=== PATIENT | female | born 1950 | race Caucasian/White ===

== ENCOUNTER 2021-06-13 18:36 | Emergency (ER) | payer MEDICARE, SELFPAY ==
[2021-06-13 18:53] VITALS: BP 143/85; PULSE 91; RESP 18; TEMP 36.8; O2SAT 96; BMI 28.3
--- NOTE | 2021-06-13 19:18 | W.ED.GENADLT ---
HPI - General Adult General: Chief complaint: General Medical Stated complaint: Sinus Infection Time Seen by Provider: 06/13/21 19:05 History of Present Illness: Patient is a 70-year-old female comes to the ED with upper respiratory symptoms. Symptoms started approximately 5 days ago. She is complaining of having sinus congestion and drainage along with a cough. She says her cough is dry and nonproductive. She also feels some shortness of breath with exertion since start of symptoms. Endorses fever and chills. Denies any chest pain, sore throat, abdominal pain, nausea, vomiting, bladder or bowel symptoms. Associated symptoms: Reports dyspnea (mild SOB with exertion); Deny chest pain, headache(s), nausea, rash, palpitations or vomiting Review of Systems Const: Reports: fever(s); Denies: chills or fatigue Eyes: Denies: change in vision or eye discomfort ENMT: Reports: nasal discharge and nasal congestion; Denies: throat pain or odynophagia Card: Denies: chest pain, palpitations, edema, swelling of feet/ankles, dyspnea on exertion or orthopnea Resp: Reports: dyspnea (mild SOB with exertion) and non-productive cough; Denies: productive cough GI: Denies: abdominal pain, nausea, vomiting, diarrhea, constipation or hematochezia : Denies: flank pain, dysuria or hematuria Musc: Denies: neck pain, back pain or extremity swelling Skin/Breast: Denies: rash or new lesions Neuro: Denies: headache(s), numbness in extremities or weakness in extremities PFS ED PFSH: Medical History No pertinent family history Surgical History No pertinent past surgical history Physical Exam Const: COMMON NORMALS: no acute distress, patient oriented x3 and alert GENERAL APPEARANCE: cooperative and comfortable HENMT: COMMON NORMALS: normocephalic HEAD & SCALP: normocephalic FACE & SINUS: no sinus tenderness MOUTH: Normal oral and palatal mucosa present THROAT: posterior oropharynx normal and uvula midline Eye: COMMON NORMALS: Equal, round and reactive pupils present and conjunctivae normal CONJUNCTIVA: Yes conjunctivae normal PUPIL: Yes Equal, round and reactive pupils present Neck/C-Spine: COMMON NORMALS: supple GENERAL: Yes normal visual inspection Resp: COMMON NORMALS: normal respiratory effort, No retractions, No use of accessory muscles and clear to auscultation bilaterally AUSCULTATION: clear to auscultation bilaterally Cardio: COMMON NORMALS: regular rate, regular rhythm, S1 normal heart sound present, S2 normal heart sound present, No gallops present (Cardio), No clicks present (Cardio), No murmurs present (Cardio) and Peripheral pulses 2+ throughout RATE: regular rate RHYTHM: regular rhythm HEART SOUNDS: S1 normal heart sound present and S2 normal heart sound present PERIPHERAL PULSES: Peripheral pulses 2+ throughout GI: COMMON NORMALS: Normal to inspection, nondistended, normoactive bowel sounds present, Soft to palpation, non-tender and no masses PALPATION: Yes Soft to palpation : COMMON NORMALS: Yes no CVA tenderness BLADDER/KIDNEY EXAM: Yes no CVA tenderness Back/Pelvis: COMMON NORMALS: no CVA tenderness Extremity: COMMON NORMALS: normal to inspection Neuro: COMMON NORMALS: patient oriented x3 and moves all extremities SENSORIUM/ORIENTATION: Yes alert Skin: GENERAL SKIN EXAM: dry skin Course Vital Signs: Vital signs: Vital Signs Temperature 98.2 F 06/13/21 20:09 Pulse Rate 95 06/13/21 20:09 Respiratory Rate 16 06/13/21 20:09 Blood Pressure 143/85 06/13/21 20:09 Pulse Oximetry 98 06/13/21 20:09 [facility] - General Adult Medical Decision Making Patient is a 70-year-old female comes to the ED with nasal congestion drainage, dry cough and fevers for the past 5 days. Vitals are stable. Patient appears nontoxic and in no acute distress or pain. Rest of exam is benign. Chest x-ray showed no pneumonia. Covid and influenza were negative. Patient diagnosed with bronchitis and discharged home with a prescription for azithromycin and prednisone. She was told to follow-up with her PCP in 5 to 7 days reevaluation. Return to ED precautions given. Patient understood and agree with plan. Lab Data I reviewed the patient's lab results. Laboratory Results Influenza Type A Ag Negative (Negative) 06/13/21 19:27 Influenza Type B Ag Negative (Negative) 06/13/21 19:27 SARS-CoV-2 Ag (Rapid) Negative (Negative) 06/13/21 19:27 Imaging Data CXR: My impression: Chest x-ray?no infiltrate seen. Discharge Plan Discharge Patient Disposition: Home Clinical Impression: Bronchitis Condition: Stable Prescriptions: New prednisone 20 mg tablet 20 mg PO BID 5 Days Qty: 10 0RF azithromycin 250 mg tablet 250 mg PO DAILY 4 Days Qty: 4 0RF Rx Instructions: start on day 2 of therapy Discharge Orders: Discharge ED (Routine); Ordered 06/13/21 Ordered By: Wojciech Florian Discharge Diet: Regular Discharge Activity: Increase activity as tolerated Patient Instructions: Acute Bronchitis (ED), Upper Respiratory Infection - Adult Activity Restrictions/Additional Instructions: Follow-up with medical provider as directed in 7 to 10 days for reevaluation.Take medications as prescribed. Return to the ER or your medical provider if condition worsens. Please read and understand discharge instructions. Thank you for choosing [facility] for your healthcare needs today. Please realize this is an emergency room and that we are providing you with a medical screening exam and this may not be complete and all inclusive of all the testing and or work up that you may need to determine your ailment or severity of your illness. It is very important that you follow up as instructed or that you return to the Emergency Department should you have concerns or if your condition changes or worsens in any way. Coding Level of Care Code ED Automatic Pattern Edger for Dulce Kent Exam Comprehensive
--- NOTE | 2021-06-13 19:19 | XRR_ITS ---
PROCEDURE INFORMATION: Exam: XR Chest Exam date and time: 06/13/2021 6:28 PM Age: 70 years old Clinical indication: Cough TECHNIQUE: Imaging protocol: XR of the chest. Views: 1 view. COMPARISON: No relevant prior studies available. FINDINGS: Lungs: Unremarkable. No consolidation. Pleural spaces: Unremarkable. No pleural effusion. No pneumothorax. Heart/Mediastinum: Unremarkable. No cardiomegaly. Bones/joints: Unremarkable. XR/XR chest 1V portable [id number] IMPRESSION: No acute findings.
[2021-06-13 19:57] LABS: Influenza A by IFA Negative (Negative); Influenza B by IFA Negative (Negative); SARS Covid-2 Antigen Negative (Negative)
[2021-06-13 20:09] VITALS: BP 143/85; PULSE 95; RESP 16; TEMP 36.8; O2SAT 98
[2021-06-13] MEDS: azithromycin 250 mg Tablet 500 MG PO (20:42)
[2021-06-13] MEDS: predniSONE 20 mg Tablet 40 MG PO (20:42)
== END 2021-06-13 20:44 | disposition home or self-care (01) ==
PROVIDERS: Emergency Provider Physician Assistant; PCP Internal Medicine
DX: J40 Bronchitis, not specified as acute or chronic (principal); Z20.822 Contact with and (suspected) exposure to COVID-19
CPT/HCPCS: 71045; 87426; 87804; 99283; J7512; Q0144

== ENCOUNTER → 2021-08-15 08:56 | Day surgery (SDC) | payer MEDICARE, SELFPAY ==
[2021-08-15 09:44] VITALS: BP 131/93; PULSE 83; RESP 18; TEMP 36.3; O2SAT 96
== END ==
PROVIDERS: PCP Internal Medicine; Visit Provider Internal Medicine
DX: M81.0 Age-related osteoporosis without current pathological fracture (principal)
CPT/HCPCS: 96365

== ENCOUNTER 2022-12-16 08:32 | Oncology outpatient (recurring) (ONCR) | payer MEDICARE, SELFPAY ==
[2022-12-16 09:15] VITALS: BP 121/76; PULSE 68; RESP 17; TEMP 35.7; O2SAT 99
[2022-12-16] MEDS: FLEXIBLE CONTAINER IV (10:07)
[2022-12-16] MEDS: ZOLEDRONIC ACID IV (10:07)
[2022-12-16 10:28] VITALS: BP 131/82; PULSE 66; RESP 18; TEMP 36.6; O2SAT 96
== END 2022-12-26 23:59 | disposition home or self-care (01) ==
LOC: ONCMED 08:33
PROVIDERS: PCP Internal Medicine; Visit Provider Internal Medicine
DX: M81.0 Age-related osteoporosis without current pathological fracture (principal)
CPT/HCPCS: 96365; J3489

== ENCOUNTER 2023-01-07 14:52 | Outpatient (CLI) | payer MEDICARE, SELFPAY ==
--- NOTE | 2023-01-07 14:59 | MR_ITS ---
WS: [id number] MRI LUMBAR SPINE NONCONTRAST TECHNIQUE: Sagittal T1, T2 and STIR imaging. Axial T1 and T2 imaging. CLINICAL INFORMATION: OTHER INTERVERTEBRAL DISC DEGENERATION,LUMBAR REGION COMPARISON: None. FINDINGS: Thoracolumbar scoliosis convex LEFT. Partially visualized edema within the sacral ala likely due to a cute insufficiency fractures. This is partially visualized and recommend further evaluation with MRI of the pelvis/sacrum. Tiny disc protrusions at T11-T12 and T12-L1. LEFT foraminal protrusion T10-11 with moderate LEFT fora meely narrowing. L1-L2: Mild annular bulging. Slight narrowing the RIGHT subarticular recess. Mild RIGHT foraminal ana maria rowing. Moderate facet arthropathy. L2-L3: Disc osteophyte complex with moderate central canal stenosis. Impingement traversing L3 nerve roots. Moderate facet arthropathy. Moderate to severe central canal stenosis. Moderate RIGHT and mild LEFT foraminal narrowing. L3-L4: Disc osteophyte complex with narrowing of the LEFT subarticular recess. Moderate facet arthrop athy. Mild RIGHT and no significant LEFT foraminal narrowing. L4-L5: Mild LEFT and no significant RIGHT foraminal narrowing. Moderate facet arthropathy. Spinal can al is patent. L5-S1: LEFT eccentric disc osteophyte complex. Encroachment on the far exiting LEFT L5 nerve root. Sp inal canal and RIGHT foramen are patent. Laminectomy defects. Visualized pelvic bony structures: Normal. Paravertebral soft tissues: Normal. IMPRESSION: 1. Advanced thoracolumbar scoliosis convex LEFT. 2. Diffuse edema partially visualized in the sacroiliac likely due to acute insufficiency fractures. This is only partially included. This could be further evaluated with MRI of the pelvis and sacrum. 3. Moderate to severe central canal stenosis L2-3 with impingement on the traversing L3 nerve roots bilaterally. 4. Mild to moderate bony foraminal narrowing worse at RIGHT L1-2, RIGHT L2-3, RIGHT L3-4 and LEFT L4 -5 5. LEFT foraminal protrusion T10-11 with moderate LEFT foraminal narrowing.
== END 2023-01-07 14:53 | disposition home or self-care (01) ==
PROVIDERS: PCP Internal Medicine; Visit Provider Internal Medicine
DX: M51.36 Other intervertebral disc degeneration, lumbar region (principal); M41.85 Other forms of scoliosis, thoracolumbar region; R60.0 Localized edema; M48.061 Spinal stenosis, lumbar region without neurogenic claudication; M48.04 Spinal stenosis, thoracic region
CPT/HCPCS: 72148

== ENCOUNTER 2023-03-03 12:43 | Outpatient (CLI) | payer MEDICARE, SELFPAY ==
--- NOTE | 2023-03-03 12:55 | MR_ITS ---
WS: [id number] MRI OF THE SACRUM WITHOUT GADOLINIUM ENHANCEMENT. INDICATION: Low back pain hip pain COMPARISON: MRI lumbar spine 01/07/2023 TECHNIQUE: Sagittal T2, coronal T1, coronal STIR, axial T2 fat-sat, coronal T1, axial STIR, coronal S TIR. FINDINGS: Mild diffuse edema is again visualized in the RIGHT greater than LEFT sacrum extending into the sacral ala bilaterally. Fracture lines are visualized best seen on the coronal T1 imaging compat ible with sacral insufficiency fractures. This is more extensive on the RIGHT. Recommend correlation for sacral pain. Tarlov cyst in the sacrum. Mild to moderate degenerative narrowing both hips. Normal bone marrow sign al in the femoral heads and necks. No acute hip fractures. Normal visualized pubic rami. IMPRESSION: 1. Bilateral RIGHT greater than LEFT acute to subacute sacral insufficiency fractures with visualize d fracture clefts and mild edema. Recommend correlation for sacral pain. 2. No other acute findings.
== END 2023-03-03 12:44 | disposition home or self-care (01) ==
LOC: RAD 12:43
PROVIDERS: PCP Internal Medicine; Visit Provider Internal Medicine
DX: M84.48XA Pathological fracture, other site, initial encounter for fracture (principal); M54.50 Low back pain, unspecified; M25.559 Pain in unspecified hip
CPT/HCPCS: 72148